=== PATIENT | female | born 2000 | race Asian ===

== ENCOUNTER 2022-05-03 23:59 | Inpatient (IN) ==
[2022-05-04] MEDS ORDERED: LORazepam 0.5 MG TAB PO STA (00:49)
[2022-05-04 01:14] LABS: Eosinophils # (auto) 0.01 K/uL (0-0.50); Eosinophils % (auto) 0.5 %; Hematocrit (blood only) 37.8 % (34.1-44.9); Hemoglobin 12.9 g/dl (12.0-16.0); Immature Granulocytes # (auto) 0.01 K/uL (0.00-0.02); Immature Granulocytes % (auto) 0.5 %; Lymphocytes # (auto) 0.58 K/uL (1.2-3.4); Lymphocytes % (auto) 27.4 %; Mean Corpuscular Hemoglobin 26.2 pg (25.0-34.0); Mean Corpuscular Hgb Conc 34.1 g/dL (32.0-36.0); Mean Corpuscular Volume 76.7 fL (80.0-100.0); Mean Platelet Volume 9.7 fL (9.4-12.3); Monocytes # (auto) 0.23 K/uL (0.24-0.82); Monocytes % (auto) 10.8 %; Neutrophils # (auto) 1.29 K/uL (1.4-6.5); Neutrophils % (auto) 60.8 %; Platelet Count 183 K/uL (130-400); RDW Coefficient of Variation 14.6 % (11.5-14.5); RDW Standard Deviation 39.3 fL (36.4-46.3); Red Blood Count 4.93 M/uL (3.93-5.22); White Blood Count 2.12 K/ul (4.8-10.8)
[2022-05-04 01:20] LABS: Appearance Urine Cloudy (Clear); Bacteria Urine Automated Negative (Negative); Bilirubin Urine Negative (Negative); Blood Urine Negative (Negative); Cast Urine Automated 0 /lpf (0-5); Color Urine Yellow; Epithelial Cell Urine Auto >30 /lpf (0-5); Glucose Urine UA Negative (Negative); Ketones Urine Trace (Negative); Leukocyte Esterase Urine Negative (Negative); Nitrite Urine Negative (Negative); Protein Urine Negative (Negative); RBC Urine Automated 0-4 /hpf (0-4); Specific Gravity Urine 1.013 (1.000-1.030); Urobilinogen Urine Negative (Negative)
[2022-05-04 01:36] LABS: Pregnancy Test, Serum Negative (Negative)
[2022-05-04 01:40] LABS: Acetaminophen < 3 ug/ml (10-30); Salicylate < 3.0 mg/dl (3.0-30)
[2022-05-04 01:41] LABS: Albumin Globulin Ratio 1.3 (0.9-2); Albumin Level 4.4 gm/dl (3.4-5.0); BUN Creatinine Ratio 14.9 (10-20); Bilirubin,Total 0.5 mg/dl (0.2-1.0); Calcium 9.5 mg/dl (8.5-10.1); Creatinine Clr Calc Pharmacy 96.3 ml/min; Est GFR (African American) 135.2 ml/min; Est GFR (Non-African American) 116.6 ml/min; Globulin 3.3 gm/dl (2.5-4.0); Potassium 3.6 mmol/L (3.5-5.1); Total Protein 7.7 gm/dl (6.0-8.3)
[2022-05-04 02:16] LABS: Amphetamines+Metham, Urine Neg (Neg); Barbiturates, Urine Neg (Neg); Benzodiazepine, Urine Neg (Neg); Cocaine, Urine Neg (Neg); MDMA (Ecstacy), Urine Neg (Neg); Methadone, Urine Neg (Neg); Opiate, Urine Neg (Neg); Phencyclidine, Urine Neg (Neg)
--- NOTE | 2022-05-04 02:24 | Emergency Department Note ---
History of Present Illness General Chief complaint: Anxiety Stated complaint: PANICK ATTACK Time Seen by Provider: 05/04/22 00:33 History of Present Illness Maximum Pain Intensity: 8 This is a 21-year-old female presenting to the emergency department for evaluation of mental health. The patient has a longstanding history of anxiety and depression. The patient previously was on medication for bipolar disorder which she discontinued taking a few months ago. She was seen in this department yesterday for medication reaction to doxycycline, as it was making her very nauseated. Evidently she was on this medication for bacterial vaginosis, however it appears the patient has had greater than 10 male sexual partners in the past few months. The patient states that her boyfriend cheated on her, and this was her way of getting back at him. The patient tonight went to a window in an apartment building, open the window, and states that she was going to jump out the window to commit suicide. She did have friends in the apartment, who were able to return her back to the room and ultimately bring her to the ER for evaluation. The patient has increased anxiety with school and this does cause her significant chest pain and nausea. She denies substance abuse or alcohol use. Home Medications Medication Instructions Recorded Confirmed Type doxycycline monohydrate 100 mg 100 mg PO BID 05/02/22 05/04/22 History capsule metronidazole 500 mg tablet 500 mg PO DAILY 05/02/22 05/04/22 History norethindrone 1 mg-ethinyl 1 tab PO DAILY 05/02/22 05/04/22 History estradiol 20 mcg (24)-iron 75 mg (4) tablet (Sol 24 Fe) quetiapine 100 mg tablet 200 mg PO HS 05/02/22 05/04/22 History trazodone 50 mg tablet 50 mg PO HS 05/02/22 05/04/22 History venlafaxine 225 mg tablet,extended 225 mg PO QAM 05/02/22 05/04/22 History release 24 hr Allergies Allergy/AdvReac Type Severity Reaction Status Date / Time No Known Allergies Allergy Unverified 05/02/22 21:55 Past Med/Surg History Medical History Anxiety and depression Bacterial vaginosis Bipolar affective disorder Surgical History No significant past surgical history Social History Smoking Status: Light tobacco smoker Tobacco Type: E-cigarettes / Vaping Hx Alcohol Use: No Hx Substance Use: No Preferred Language: Peruvian Communication Ability: Effective Rental Clerk Tool And Equipment Required: No Beliefs That Will Affect Care: None Feels Safe at Home: Yes Assistive Devices: Contacts Review of Systems A total of 10 systems reviewed and were otherwise negative Physical Exam Vital Signs Vital Signs - 24 hr 05/04/22 00:06 05/03/22 23:59 05/03/22 23:59 Temperature 37.0 C Temperature Source Temporal Artery Scan Pulse Rate 111 H Pulse Rate [Finger] 94 H Pulse Rhythm [Finger] Respiratory Rate 26 H 26 H Respiratory Effort / Characteristics Spontaneous Respiratory Depth Respiratory Pattern Rapid/Shallow Blood Pressure 112/81 Blood Pressure [Right Arm] 136/81 Blood Pressure Mean 91 Blood Pressure Mean [Right Arm] 99 Pulse Oximetry 97 100 100 Oxygen Delivery Method Room Air Room Air Room Air Sepsis New/Unexplained Change in Mental Status N/A Sepsis Action Taken by Nursing No Action Required 05/04/22 02:00 Temperature Temperature Source Pulse Rate Pulse Rate [Finger] 99 H Pulse Rhythm [Finger] Regular Respiratory Rate 20 Respiratory Effort / Characteristics Non-Labored Respiratory Depth Normal Respiratory Pattern Regular Blood Pressure Blood Pressure [Right Arm] 124/86 Blood Pressure Mean Blood Pressure Mean [Right Arm] 98 Pulse Oximetry 100 Oxygen Delivery Method Room Air Sepsis New/Unexplained Change in Mental Status Sepsis Action Taken by Nursing VITALS: Vitals are noted on the nurse's note and reviewed by myself. Vital signs stable. GENERAL: female who appears quite emotional. She is crying on exam but overall cooperative. HEAD: Normocephalic atraumatic. EARS: External ear normal. External auditory canals clear, tympanic membranes pearly bartlett without erythema or effusion bilaterally. EYES: Pupils equal round and reactive to light and accommodation. Conjunctivae without injection, sclerae without icterus. Extraocular movements intact. NOSE: Patent, turbinates without inflammation or discharge. MOUTH: Mucous membranes moist. Tonsils are not enlarged. Pharynx without erythema, blood, or exudate. Uvula midline. Airway patent. NECK: Supple without nuchal rigidity. No lymphadenopathy. No thyromegaly. Cervical spine is nontender. HEART: Regular rate and rhythm without murmurs gallops or rubs. LUNGS: Clear to auscultation bilaterally without wheezes, rales or rhonchi. No retractions or accessory muscle use. ABDOMEN: Positive normal bowel sounds x 4. Soft, nontender, without masses or organomegaly. No guarding or rebound tenderness. MUSCULOSKELETAL: No muscle atrophy, erythema, or edema noted. Full range of m otion in all extremities. No tenderness to palpation. Normal gait. Strength 5/5 throughout. NEURO: Patient was alert and oriented to person place and time. CN II through XII grossly intact. No focal neurological deficits. Deep tendon reflexes 2+ throughout. GCS 15. SKIN: The skin was without rashes, erythema, edema, or bruising. Capillary refill less than 2 seconds. Course Administered Medications Acetaminophen (Acetaminophen 325 Mg Tab) 650 mg PO Q4H PRN PRN Reason: Headache or Minor Fever Stop: 06/03/22 03:04 Last Admin: 05/04/22 04:15 Dose: 650 mg Documented By: AGATHA Hydroxyzine HCl (Hydroxyzine Hcl 25 Mg Tab) 25 mg PO Q4H PRN PRN Reason: Anxiety Stop: 06/03/22 03:04 Last Admin: 05/04/22 04:16 Dose: 25 mg Documented By: AGATHA Discontinued Medications Lorazepam (Lorazepam 0.5 Mg Tab) 0.5 mg PO NOW STA Stop: 05/04/22 00:50 Last Admin: 05/04/22 01:16 Dose: 0.5 mg Documented By: DEDE Medical Decision Making Differential Diagnosis Differential diagnosis: Etiologies such as psychiatric disorder, infection, hypoglycemia, electrolyte abnormalities, cardiac sources, intracerebral event, toxicological process, neurologic disorder, as well as others were entertained. Laboratory Data Result diagrams: 05/04/22 00:43 05/04/22 00:43 Lab Results 05/04/22 05/04/22 05/04/22 Range/Units 00:40 00:40 00:43 WBC 2.12 L (4.8-10.8) K/ul RBC 4.93 (3.93-5.22) M/uL Hgb 12.9 (12.0-16.0) g/dl Hct 37.8 (34.1-44.9) % MCV 76.7 L (80.0-100.0) fL MCH 26.2 (25.0-34.0) pg MCHC 34.1 (32.0-36.0) g/dL RDW Std Deviation 39.3 (36.4-46.3) fL RDW Coeff of Lizeth 14.6 H (11.5-14.5) % Plt Count 183 (130-400) K/uL MPV 9.7 (9.4-12.3) fL Immature Gran % (Auto) 0.5 % Neut % (Auto) 60.8 % Lymph % (Auto) 27.4 % [place] % (Auto) 10.8 % Eos % (Auto) 0.5 % Baso % (Auto) 0.0 % Neut # (Auto) 1.29 L (1.4-6.5) K/uL Lymph # (Auto) 0.58 L (1.2-3.4) K/uL [place] # (Auto) 0.23 L (0.24-0.82) K/uL Eos # (Auto) 0.01 (0-0.50) K/uL Baso # (Auto) 0.00 (0-0.2) K/uL Immature Gran # (Auto) 0.01 (0.00-0.02) K/uL Sodium (136-145) mmol/L Potassium (3.5-5.1) mmol/L Chloride (98-107) mmol/L Carbon Dioxide (21-32) mmol/L Anion Gap (3-11) BUN (6-23) mg/dl Creatinine (0.6-1.2) mg/dl Est Cr Clr Drug Dosing ml/min Est GFR ( Amer) ml/min Est GFR (Non-Af Amer) ml/min BUN/Creatinine Ratio (10-20) Glucose (70-99(Fasting)) mg/dl Calcium (8.5-10.1) mg/dl Total Bilirubin (0.2-1.0) mg/dl AST (13-39) U/L ALT (7-52) U/L Alkaline Phosphatase (34-104) U/L Total Protein (6.0-8.3) gm/dl Albumin (3.4-5.0) gm/dl Globulin (2.5-4.0) gm/dl Albumin/Globulin Ratio (0.9-2) TSH (0.300-4.500) uIu/ml HCG, Qual (Negative) Urine Color Yellow Urine Appearance Cloudy A (Clear) Urine pH 8.0 H (4.5-7.5) Ur Specific [place] 1.013 (1.000-1.030) Urine Protein Negative (Negative) Urine Glucose (UA) Negative (Negative) Urine Ketones Trace H (Negative) Urine Blood Negative (Negative) Urine Nitrite Negative (Negative) Urine Bilirubin Negative (Negative) Urine Urobilinogen Negative (Negative) Ur Leukocyte Esterase Negative (Negative) Urine WBC (Auto) 1-5 (0-5) /hpf Urine RBC (Auto) 0-4 (0-4) /hpf U Hyaline Cast (Auto) 0 (0-5) /lpf U Epithel Cells (Auto) >30 H (0-5) /lpf Urine Bacteria (Auto) Negative (Negative) Urine Yeast Not Reportable Salicylates (3.0-30) mg/dl Urine Opiates Screen Neg (Neg) Ur Methadone, Qual Neg (Neg) Acetaminophen (10-30) ug/ml Urine Barbiturates Neg (Neg) Ur Phencyclidine (PCP) Neg (Neg) U Amphetamin/Meth Scrn Neg (Neg) MDMA (Ecstasy) Screen Neg (Neg) U Benzodiazepines Scrn Neg (Neg) Ur Cocaine Metabolite Neg (Neg) U Marijuana (THC) Screen Neg (Neg) Ethyl Alcohol mg/dL (<10.0) mg/dl SARS-CoV-2, RNA, NAAT (NEGATIVE) 05/04/22 05/04/22 05/04/22 Range/Units 00:43 00:43 00:43 WBC (4.8-10.8) K/ul RBC (3.93-5.22) M/uL Hgb (12.0-16.0) g/dl Hct (34.1-44.9) % MCV (80.0-100.0) fL MCH (25.0-34.0) pg MCHC (32.0-36.0) g/dL RDW Std Deviation (36.4-46.3) fL RDW Coeff of Lizeth (11.5-14.5) % Plt Count (130-400) K/uL MPV (9.4-12.3) fL Immature Gran % (Auto) % Neut % (Auto) % Lymph % (Auto) % [place] % (Auto) % Eos % (Auto) % Baso % (Auto) % Neut # (Auto) (1.4-6.5) K/uL Lymph # (Auto) (1.2-3.4) K/uL [place] # (Auto) (0.24-0.82) K/uL Eos # (Auto) (0-0.50) K/uL Baso # (Auto) (0-0.2) K/uL Immature Gran # (Auto) (0.00-0.02) K/uL Sodium 132 L (136-145) mmol/L Potassium 3.6 (3.5-5.1) mmol/L Chloride 102 (98-107) mmol/L Carbon Dioxide 21 (21-32) mmol/L Anion Gap 9 (3-11) BUN 11 (6-23) mg/dl Creatinine 0.74 (0.6-1.2) mg/dl Est Cr Clr Drug Dosing 96.3 ml/min Est GFR ( Amer) 135.2 ml/min Est GFR (Non-Af Amer) 116.6 ml/min BUN/Creatinine Ratio 14.9 (10-20) Glucose 96 (70-99(Fasting)) mg/dl Calcium 9.5 (8.5-10.1) mg/dl Total Bilirubin 0.5 (0.2-1.0) mg/dl AST 68 H (13-39) U/L ALT 23 (7-52) U/L Alkaline Phosphatase 55 (34-104) U/L Total Protein 7.7 (6.0-8.3) gm/dl Albumin 4.4 (3.4-5.0) gm/dl Globulin 3.3 (2.5-4.0) gm/dl Albumin/Globulin Ratio 1.3 (0.9-2) TSH 0.832 (0.300-4.500) uIu/ml HCG, Qual (Negative) Urine Color Urine Appearance (Clear) Urine pH (4.5-7.5) Ur Specific [place] (1.000-1.030) Urine Protein (Negative) Urine Glucose (UA) (Negative) Urine Ketones (Negative) Urine Blood (Negative) Urine Nitrite (Negative) Urine Bilirubin (Negative) Urine Urobilinogen (Negative) Ur Leukocyte Esterase (Negative) Urine WBC (Auto) (0-5) /hpf Urine RBC (Auto) (0-4) /hpf U Hyaline Cast (Auto) (0-5) /lpf U Epithel Cells (Auto) (0-5) /lpf Urine Bacteria (Auto) (Negative) Urine Yeast Salicylates < 3.0 L (3.0-30) mg/dl Urine Opiates Screen (Neg) Ur Methadone, Qual (Neg) Acetaminophen < 3 L (10-30) ug/ml Urine Barbiturates (Neg) Ur Phencyclidine (PCP) (Neg) U Amphetamin/Meth Scrn (Neg) MDMA (Ecstasy) Screen (Neg) U Benzodiazepines Scrn (Neg) Ur Cocaine Metabolite (Neg) U Marijuana (THC) Screen (Neg) Ethyl Alcohol mg/dL (<10.0) mg/dl SARS-CoV-2, RNA, NAAT (NEGATIVE) 05/04/22 05/04/22 05/04/22 Range/Units 00:43 00:43 01:17 WBC (4.8-10.8) K/ul RBC (3.93-5.22) M/uL Hgb (12.0-16.0) g/dl Hct (34.1-44.9) % MCV (80.0-100.0) fL MCH (25.0-34.0) pg MCHC (32.0-36.0) g/dL RDW Std Deviation (36.4-46.3) fL RDW Coeff of Lizeth (11.5-14.5) % Plt Count (130-400) K/uL MPV (9.4-12.3) fL Immature Gran % (Auto) % Neut % (Auto) % Lymph % (Auto) % [place] % (Auto) % Eos % (Auto) % Baso % (Auto) % Neut # (Auto) (1.4-6.5) K/uL Lymph # (Auto) (1.2-3.4) K/uL [place] # (Auto) (0.24-0.82) K/uL Eos # (Auto) (0-0.50) K/uL Baso # (Auto) (0-0.2) K/uL Immature Gran # (Auto) (0.00-0.02) K/uL Sodium (136-145) mmol/L Potassium (3.5-5.1) mmol/L Chloride (98-107) mmol/L Carbon Dioxide (21-32) mmol/L Anion Gap (3-11) BUN (6-23) mg/dl Creatinine (0.6-1.2) mg/dl Est Cr Clr Drug Dosing ml/min Est GFR ( Amer) ml/min Est GFR (Non-Af Amer) ml/min BUN/Creatinine Ratio (10-20) Glucose (70-99(Fasting)) mg/dl Calcium (8.5-10.1) mg/dl Total Bilirubin (0.2-1.0) mg/dl AST (13-39) U/L ALT (7-52) U/L Alkaline Phosphatase (34-104) U/L Total Protein (6.0-8.3) gm/dl Albumin (3.4-5.0) gm/dl Globulin (2.5-4.0) gm/dl Albumin/Globulin Ratio (0.9-2) TSH (0.300-4.500) uIu/ml HCG, Qual Negative (Negative) Urine Color Urine Appearance (Clear) Urine pH (4.5-7.5) Ur Specific [place] (1.000-1.030) Urine Protein (Negative) Urine Glucose (UA) (Negative) Urine Ketones (Negative) Urine Blood (Negative) Urine Nitrite (Negative) Urine Bilirubin (Negative) Urine Urobilinogen (Negative) Ur Leukocyte Esterase (Negative) Urine WBC (Auto) (0-5) /hpf Urine RBC (Auto) (0-4) /hpf U Hyaline Cast (Auto) (0-5) /lpf U Epithel Cells (Auto) (0-5) /lpf Urine Bacteria (Auto) (Negative) Urine Yeast Salicylates (3.0-30) mg/dl Urine Opiates Screen (Neg) Ur Methadone, Qual (Neg) Acetaminophen (10-30) ug/ml Urine Barbiturates (Neg) Ur Phencyclidine (PCP) (Neg) U Amphetamin/Meth Scrn (Neg) MDMA (Ecstasy) Screen (Neg) U Benzodiazepines Scrn (Neg) Ur Cocaine Metabolite (Neg) U Marijuana (THC) Screen (Neg) Ethyl Alcohol mg/dL < 10.0 (<10.0) mg/dl SARS-CoV-2, RNA, NAAT NEGATIVE (NEGATIVE) MDM Narrative Physical exam and history were performed. Nursing notes, EMR, and Medication List were personally reviewed. Patient appears to have increased anxiety and depression today. She made overtures to jump out the window of an apartment building tonight, but was stopped by her friends. The patient is very emotional on arrival. Evidently she does have high risk sexual behavior recently as well after having difficulties with her boyfriend. Blood work was obtained and sent to the lab. Urine was collected. The patient is cooperative and currently voluntary. I did fill out a 302, and this is on the chart. I did give her a dose of 0.5 mg oral Ativan for comfort. She was placed on suicide precautions with a one-on-one. The case was discussed with my attending. The patient's blood work is as above and was reviewed. She does not have a significantly elevated white blood cell count, gross anemia, bandemia, or s ignificant electrolyte imbalance. Transaminases are not diagnostic. She is not . Urine is without distinct evidence of infection. Drug abuse screen is negative. Tylenol and salicylates are negative. Alcohol and COVID are negative. Remaining labs are nondiagnostic. The patient remained in stable condition here in the ER. She is now medically clear at 02:22. I did reach out to case management who will help facilitate further mental health evaluation. 201 was completed. Please see mental health teams dictation for further patient course, plan, disposition. The chart was completed utilizing [employer] Speech Voice Recognition Software. Grammatical errors, random word insertions, pronoun errors, and incomplete sentences are an occasional consequence of this system due to software limitations, ambient noise, and hardware issues. Any formal questions or concerns about the content, text, or information contained within the body of this dictation should be directly addressed to the provider for clarification. . Impression & Plan Anxiety and depression, Suicide attempt, High risk sexual behavior Discharge Plan Visit Data Chief Complaint: Anxiety Stated Complaint: PANICK ATTACK ED Provider: Jose R Angeles ED Midlevel Provider: Greg Coyle Discharge Problem: Anxiety and depression, Suicide attempt, High risk sexual behavior Patient Disposition: Admitted As Inpatient Discharge Instructions Interventions: ED Discharge Assessment Last Done: 05/04/22 03:57
[2022-05-04] MEDS ORDERED: SODIUM CHLORIDE 0.65% NA SOLN 45 ML (OCEAN) PRN (03:05)
[2022-05-04] MEDS ORDERED: MAGNESIUM HYDROXIDE SUSP 30 ML UDC PO PRN (03:05)
[2022-05-04] MEDS ORDERED: hydrOXYzine HCl 25 MG TAB PO PRN ×2 (03:05)
[2022-05-04] MEDS ORDERED: ALUMINUM/MAGNESIUM SUSP 30 ML UDC PO PRN (03:05)
[2022-05-04] MEDS: ACETAMINOPHEN 325 MG TAB PO PRN ×3 (04:15→23:07)
[2022-05-04] MEDS ORDERED: traZODone HCL 50 MG TAB PO PRN (12:41)
--- NOTE | 2022-05-04 13:41 | History & Physical ---
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 Bipolar by hx, has side effects to mood stabilizer and discontinued antidepressant on own about 2 months ago. Unclear if having true manic episodes vs. acting out sexually, will continue to explore hypomania as suspect may minimize at this time. (1) Suicide attempt: (2) Bipolar II disorder major depressive with atypical features: Plan The patient was admitted to the [facility] ([facility] health unit) on q15 min checks (behavioral with suicide precautions) for safety. The patient will participate in group, recreational, and milieu therapies and will be offered additional individual and family sessions as clinically appropriate. Risks/benefits/alternatives reviewed re: her current medications. will order fasting labs in am with plan to taper Seroquel in favor of a trial of agent like Abilify as may have more antidepressant effect and be less sedating. Inventory Assets Strengths: senior, culturally accepting of some meds Needs: local therapist and prescriber Suicide Risk Level Suicide Risk Level: High-Moderate (q15 min suicide checks) Risk Factors Assessment : No Do You Have Access To A Gun?: Yes (a small rifle in a locked gun case in living room of apartment) Mental Health Diagnoses: Yes Substance Use Disorders: No Previous Attempt: Yes Previous Psychiatric Hospitalization: No Protective Factors Assessment Employed: No Psychiatric History Identifying Data HALLE RICHARDSON is a 21-year-old F from [place] who currently attends [facility], has a history of SIB, and was admitted on 05/04/22 03:05 on a 201 voluntary commitment for SI with near attempt. Chief Complaint "I just haven't been taking my medication for while, haven't been feeling great and thought about jumping from my window." History of Present Illness Today Halle reports that she has been dealing with depression since "maybe elementary or emerita high" and has 1 prior suicide attempt by cutting in early teens but did not get any treatment at the time. She has been seeing a psychiatrist in [place] for a few years, mainly varying doses of her current meds and [place] but hasn't taken Effexor XR for 2-3 months as "don't like getting headaches, or taking meds in general." It should likes she has been only taking half of her prescribed Seroquel and 50 mg of trazodone and sometimes skips as "I have to sleep 12 hrs and then can't get up." Yesterday she had urge to end her life by climbing out her apartment window and her friends had to "talk me away" and brought her to ED for assessment. She has some difficulty relating her current stressors other than return to classes as much of this summer she spent in [place] with her boyfriend. She denies they are currently broken up but it should be seen in ED recently and completed most of course of Flagyl and doxy for BV and to cover for STIs given hx of multiple sexual partners. She admits to having sex with male friends when she really just wants to talk but didn't endorse hypersexuality and seemed to have difficulty knowing what was meant by manic symptom. She has brief periods where she feels like "talking alot" and then goes to her room to isolate. When depressed she feels like she has a harder time going to class and last week experienced panic/anxiety due to number of people in the business building. She has had similar symptoms while driving. She was having alot of N and D last week due to side effects from the antibiotics. She has been sleeping too much, gained 20 lbs this summer despite being active with golf. Past Psychiatric History Current Psychiatric Diagnosis: Bipolar, [facility]AYLEE Outpatient Services: only in [place] Previous Psych Admissions: none Do You Have Access To A Gun?: Yes (a small rifle in a locked gun case in living room of apartment) History of Previous Suicide Attempt: Yes (cut self as a minor) Allergies Allergy/AdvReac Type Severity Reaction Status Date / Time No Known Allergies Allergy Unverified 05/02/22 21:55 Home Medications Medication Instructions Recorded Confirmed Type doxycycline monohydrate 100 mg 100 mg PO BID 05/02/22 05/04/22 History capsule metronidazole 500 mg tablet 500 mg PO DAILY 05/02/22 05/04/22 History norethindrone 1 mg-ethinyl 1 tab PO DAILY 05/02/22 05/04/22 History estradiol 20 mcg (24)-iron 75 mg (4) tablet (Sol 24 Fe) quetiapine 100 mg tablet 200 mg PO HS 05/02/22 05/04/22 History trazodone 50 mg tablet 50 mg PO HS 05/02/22 05/04/22 History venlafaxine 225 mg tablet,extended 225 mg PO QAM 05/02/22 05/04/22 History release 24 hr Family History Family History of: None Alcohol History Hx of Alcohol Use Over the Past 12 Months: No AUDIT Total Score: 0 Smoking Use Have You Smoked or Used Tobacco Products in the Last 30 Days: Yes tobacco type: e-cigarettes Smoking Status: Light tobacco smoker Smoking packs per day: 1 Substance History Hx of Prescription Med Misuse Over the Past 12 Months: No Hx of Over the Counter Med Misuse Over the Past 12 Months: No Hx of Inhalent Misuse Over the Past 12 Months: Yes (laughing gas three to four months ago) Hx of Organic Substance Use Over the Past 12 Months: Yes (marijuana three to four months ago) Hx of Illegal Substances/Street Drug Use Over Past 12 Months: No Problems as a Result of Past Substance Use: None Identified Personal History Living Arrangements: Apartment (3rd story) Born In: [place] Childhood: one older sister Highest Grade Completed: Some College (sr. 4.0 in [employer]) Employment Status: Student Marital Status: Single Number Of Children: 0 Beliefs That Will Affect Care: None Current Legal Problems: No Hx Legal Problems: No Hx Traumatic Life Events: No Patient History Medical History Anxiety and depression Bacterial vaginosis Bipolar affective disorder Surgical History No significant past surgical history Social History Smoking Status: Light tobacco smoker Tobacco Type: E-cigarettes / Vaping Hx Alcohol Use: No Hx Substance Use: No Preferred Language: Bulgarian Communication Ability: Effective Steward/[employer] Car Required: No Beliefs That Will Affect Care: None Feels Safe at Home: Yes Assistive Devices: Contacts Review of Systems Review of Systems: All systems reviewed & are unremarkable except as noted in HPI & below Physical Exam Psychiatric: Orientation: alert and oriented x 3 Apperance: appropriately dressed and appropriately groomed Eye Contact: + fair eye contact Motor Behavior: no abnormal motor movements Speech: + abnormal rate/rhythm/volume of speech Affect: + depressed affect Mood: + depressed mood Thought Process: goal directed thought process Thought Content: reality based without delusions Suicidal Thoughts: denies suicidal thoughts Homicidal Thoughts: denies homicidal thoughts Hallucinations: no auditory hallucinations and no visual hallucinations Cognition: attention grossly intact and language grossly intact Estimated Intelligence: consistent with education level Insight: + limited insight Judgement: + limited judgement Vital Signs (Past 24 Hours): Last Vital Signs Temp 37.5 C 05/04/22 04:44 Pulse 104 H 05/04/22 04:44 Resp 20 05/04/22 04:44 BP 121/87 05/04/22 04:44 Pulse Ox 99 05/04/22 04:44 O2 Del Method 05/04/22 04:44 Exam Statement: A physical exam was performed in the ED by Dr. Coyle for the purposes of medical clearance. I accept that physical as correct and adequate for the purposes of the inpatient physical exam. Results & Data ([facility]) Laboratory Results Laboratory Results - last 24 hr 05/04/22 05/04/22 05/04/22 00:40 00:40 00:43 WBC 2.12 L RBC 4.93 Hgb 12.9 Hct 37.8 MCV 76.7 L MCH 26.2 MCHC 34.1 RDW Std Deviation 39.3 RDW Coeff of Lizeth 14.6 H Plt Count 183 MPV 9.7 Immature Gran % (Auto) 0.5 Neut % (Auto) 60.8 Lymph % (Auto) 27.4 [place] % (Auto) 10.8 Eos % (Auto) 0.5 Baso % (Auto) 0.0 Neut # (Auto) 1.29 L Lymph # (Auto) 0.58 L [place] # (Auto) 0.23 L Eos # (Auto) 0.01 Baso # (Auto) 0.00 Immature Gran # (Auto) 0.01 Sodium Potassium Chloride Carbon Dioxide Anion Gap BUN Creatinine Est Cr Clr Drug Dosing Est GFR ( Amer) Est GFR (Non-Af Amer) BUN/Creatinine Ratio Glucose Calcium Total Bilirubin AST ALT Alkaline Phosphatase Total Protein Albumin Globulin Albumin/Globulin Ratio TSH HCG, Qual Urine Color Yellow Urine Appearance Cloudy A Urine pH 8.0 H Ur Specific [place] 1.013 Urine Protein Negative Urine Glucose (UA) Negative Urine Ketones Trace H Urine Blood Negative Urine Nitrite Negative Urine Bilirubin Negative Urine Urobilinogen Negative Ur Leukocyte Esterase Negative Urine WBC (Auto) 1-5 Urine RBC (Auto) 0-4 U Hyaline Cast (Auto) 0 U Epithel Cells (Auto) >30 H Urine Bacteria (Auto) Negative Urine Yeast Not Reportable Salicylates Urine Opiates Screen Neg Ur Methadone, Qual Neg Acetaminophen Urine Barbiturates Neg Ur Phencyclidine (PCP) Neg U Amphetamin/Meth Scrn Neg MDMA (Ecstasy) Screen Neg U Benzodiazepines Scrn Neg Ur Cocaine Metabolite Neg U Marijuana (THC) Screen Neg Ethyl Alcohol mg/dL SARS-CoV-2, RNA, NAAT 05/04/22 05/04/22 05/04/22 00:43 00:43 00:43 WBC RBC Hgb Hct MCV MCH MCHC RDW Std Deviation RDW Coeff of Lizeth Plt Count MPV Immature Gran % (Auto) Neut % (Auto) Lymph % (Auto) [place] % (Auto) Eos % (Auto) Baso % (Auto) Neut # (Auto) Lymph # (Auto) [place] # (Auto) Eos # (Auto) Baso # (Auto) Immature Gran # (Auto) Sodium 132 L Potassium 3.6 Chloride 102 Carbon Dioxide 21 Anion Gap 9 BUN 11 Creatinine 0.74 Est Cr Clr Drug Dosing 96.3 Est GFR ( Amer) 135.2 Est GFR (Non-Af Amer) 116.6 BUN/Creatinine Ratio 14.9 Glucose 96 Calcium 9.5 Total Bilirubin 0.5 AST 68 H ALT 23 Alkaline Phosphatase 55 Total Protein 7.7 Albumin 4.4 Globulin 3.3 Albumin/Globulin Ratio 1.3 TSH 0.832 HCG, Qual Urine Color Urine Appearance Urine pH Ur Specific [place] Urine Protein Urine Glucose (UA) Urine Ketones Urine Blood Urine Nitrite Urine Bilirubin Urine Urobilinogen Ur Leukocyte Esterase Urine WBC (Auto) Urine RBC (Auto) U Hyaline Cast (Auto) U Epithel Cells (Auto) Urine Bacteria (Auto) Urine Yeast Salicylates < 3.0 L Urine Opiates Screen Ur Methadone, Qual Acetaminophen < 3 L Urine Barbiturates Ur Phencyclidine (PCP) U Amphetamin/Meth Scrn MDMA (Ecstasy) Screen U Benzodiazepines Scrn Ur Cocaine Metabolite U Marijuana (THC) Screen Ethyl Alcohol mg/dL SARS-CoV-2, RNA, NAAT 05/04/22 05/04/22 05/04/22 00:43 00:43 01:17 WBC RBC Hgb Hct MCV MCH MCHC RDW Std Deviation RDW Coeff of Lizeth Plt Count MPV Immature Gran % (Auto) Neut % (Auto) Lymph % (Auto) [place] % (Auto) Eos % (Auto) Baso % (Auto) Neut # (Auto) Lymph # (Auto) [place] # (Auto) Eos # (Auto) Baso # (Auto) Immature Gran # (Auto) Sodium Potassium Chloride Carbon Dioxide Anion Gap BUN Creatinine Est Cr Clr Drug Dosing Est GFR ( Amer) Est GFR (Non-Af Amer) BUN/Creatinine Ratio Glucose Calcium Total Bilirubin AST ALT Alkaline Phosphatase Total Protein Albumin Globulin Albumin/Globulin Ratio TSH HCG, Qual Negative Urine Color Urine Appearance Urine pH Ur Specific [place] Urine Protein Urine Glucose (UA) Urine Ketones Urine Blood Urine Nitrite Urine Bilirubin Urine Urobilinogen Ur Leukocyte Esterase Urine WBC (Auto) Urine RBC (Auto) U Hyaline Cast (Auto) U Epithel Cells (Auto) Urine Bacteria (Auto) Urine Yeast Salicylates Urine Opiates Screen Ur Methadone, Qual Acetaminophen Urine Barbiturates Ur Phencyclidine (PCP) U Amphetamin/Meth Scrn MDMA (Ecstasy) Screen U Benzodiazepines Scrn Ur Cocaine Metabolite U Marijuana (THC) Screen Ethyl Alcohol mg/dL < 10.0 SARS-CoV-2, RNA, NAAT NEGATIVE Current Inpatient Medications Current Inpatient Medications: Current Inpatient Medications Acetaminophen (Acetaminophen 325 Mg Tab) 650 mg PO Q4H PRN PRN Reason: Headache or Minor Fever Stop: 06/03/22 03:04 Last Admin: 05/04/22 04:15 Dose: 650 mg Al Hydrox/Mg Hydrox/Simethicone (Aluminum/Magnesium Susp 30 Ml Udc) 30 ml PO Q4H PRN PRN Reason: GI Upset Stop: 06/03/22 03:04 Bismuth Subsalicylate (Bismuth Subsalicylate Liqd 236 Ml) 15 ml PO PRN PRN PRN Reason: Loose Stool Stop: 06/03/22 03:04 Hydroxyzine HCl (Hydroxyzine Hcl 25 Mg Tab) 25 mg PO Q4H PRN PRN Reason: Anxiety Stop: 06/03/22 03:04 Last Admin: 05/04/22 04:16 Dose: 25 mg Magnesium Hydroxide (Magnesium Hydroxide Susp 30 Ml Udc) 30 ml PO DAILY PRN PRN Reason: Constipation Stop: 06/03/22 03:04 Miscellaneous (Oral Contraceptive: Order Awaiting Action) 1 each N/A QS ZACH Stop: 06/03/22 15:59 Quetiapine Fumarate (Quetiapine Fumarate 100 Mg Tablet) 100 mg PO HS ZACH Stop: 06/03/22 21:59 Sodium Chloride (Sodium Chloride 0.65% Na Soln 45 Ml ([place])) 1 - 2 sprays NA PRN PRN PRN Reason: Nasal Dryness/Congestion Stop: 06/03/22 03:04 Trazodone HCl (Trazodone Hcl 50 Mg Tab) 50 mg PO HS PRN PRN Reason: Insomnia Stop: 06/03/22 21:59
--- NOTE | 2022-05-04 15:52 | Electrocardiogram Report ---
Test Reason : Blood Pressure : / mmHG Vent. Rate : 098 BPM Atrial Rate : 098 BPM P-R Int : 140 ms QRS Dur : 068 ms QT Int : 332 ms P-R-T Axes : 070 061 051 degrees QTc Int : 423 ms Normal sinus rhythm Normal ECG When compared with ECG of 02-MAY-2022 22:19, No significant change was found Confirmed by Calvin Juarez ([id number]) on 05/04/2022 3:52:18 PM Referred By: REFERRED SELF Confirmed By:Calvin Juarez
[2022-05-04] MEDS ORDERED: ORAL CONTRACEPTIVE: ORDER AWAITING ACTION SCH (16:00)
[2022-05-04] MEDS: BISMUTH SUBSALICYLATE LIQD 236 ML PO PRN ×2 (18:20→21:18)
[2022-05-04] MEDS ORDERED: QUEtiapine FUMARATE 25 MG TABLET PO SCH (22:00)
[2022-05-04] MEDS ORDERED: QUEtiapine FUMARATE 100 MG TABLET PO SCH (22:00)
[2022-05-04] MEDS: PATIENT'S OWN ORAL CONTRACEPTIVE PO SCH (23:03)
[2022-05-05] MEDS ORDERED: ONDANSETRON 4 MG OD TAB PO PRN (11:45)
[2022-05-05] MEDS ORDERED: ONDANSETRON 4 MG OD TAB PO STA (11:45)
[2022-05-05] MEDS: PANTOprazole 40 MG TAB PO SCH ×2 (13:35→22:37)
--- NOTE | 2022-05-05 14:34 | Psychiatric Progress Note ---
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 Bipolar by hx, has side effects to mood stabilizer and discontinued antidepressant on own about 2 months ago. Unclear if having true manic episodes vs. acting out sexually, will continue to explore hypomania as suspect may minimize at this time. [birth year]/05/33: ongoing depression and GI complaints (1) Suicide attempt: (2) Bipolar II disorder major depressive with atypical features: Plan 05/05/22: MNPR due to GI illness, also patient has mildly low ANC which could be JIM, can't exclude side effect of Seroquel which will taper to 25 mg tonight. Cannot exclude FAIRBANKS/dizzy as discontinuation syndrome from seroquel but more likely overall illness. fasting labs as previously discussed with repeat sodium, lipase, CBC. Consider medicine consult if persists. Will reswab for covid if febrile to 100.4 (no respiratory symptoms) 05/04/22: The patient was admitted to the [facility] ([facility] health unit) on q15 min checks (behavioral with suicide precautions) for safety. The patient will participate in group, recreational, and milieu therapies and will be offered additional individual and family sessions as clinically appropriate. Risks/benefits/alternatives reviewed re: her current medications. will order fasting labs in am with plan to taper Seroquel in favor of a trial of agent like Abilify as may have more antidepressant effect and be less sedating. Inventory Assets Strengths: senior, culturally accepting of some meds Needs: local therapist and prescriber Suicide Risk Level Suicide Risk Level: High-Moderate (q15 min suicide checks) Risk Factors Assessment : No Do You Have Access To A Gun?: Yes (a small rifle in a locked gun case in living room of apartment) Mental Health Diagnoses: Yes Substance Use Disorders: No Previous Attempt: Yes Previous Psychiatric Hospitalization: No Protective Factors Assessment Employed: No Interval History Identifying Information HALLE RICHARDSON is a 21-year-old F from [place] who currently attends [facility], has a history of SIB, and was admitted on 05/04/22 03:05 on a 201 voluntary commitment for SI with near attempt. Chief Complaint "not feeling well". Review of Systems Sleep Information Total Hours of Sleep: 6 Meal Information Percent Meal Consumed - Breakfast: 10 Percent Meal Consumed - Lunch: 75 Percent Meal Consumed - Dinner: 50 Nutrition Comment: pt. had a dew bites but c/o of nausea; fluids provided Subjective Subjective Patient was seen & assessed and interval progress reviewed with nursing and social work. States that woke up more overnight (Seroquel dose was lowered, didn't receive trazodone) so FAIRBANKS and some dizziness this am but mainly nauseated when eats, like when she was on antibiotics (still having some resolving D from that), vague LUQ discomfort. Unable to attend groups today. Worse when she eats. Physical Exam Psychiatric Orientation: alert and oriented x 3 Apperance: appropriately dressed and appropriately groomed Eye Contact: + fair eye contact Motor Behavior: no abnormal motor movements Speech: + abnormal rate/rhythm/volume of speech Affect: + depressed affect Mood: + depressed mood Thought Process: goal directed thought process Thought Content: reality based without delusions Suicidal Thoughts: denies suicidal thoughts Homicidal Thoughts: denies homicidal thoughts Hallucinations: no auditory hallucinations and no visual hallucinations Cognition: attention grossly intact and language grossly intact Estimated Intelligence: consistent with education level Insight: + limited insight Judgement: + limited judgement Vital Signs (Past 24 Hours) Last Vital Signs Temp 37.3 C 05/05/22 12:01 Pulse 112 H 05/05/22 12:01 Resp 18 05/05/22 12:01 BP 101/67 05/05/22 12:01 Pulse Ox 99 05/04/22 04:44 O2 Del Method 05/04/22 04:44 Results & Data ([facility]) Current Inpatient Medications Current Inpatient Medications: Current Inpatient Medications Acetaminophen (Acetaminophen 325 Mg Tab) 650 mg PO Q4H PRN PRN Reason: Headache or Minor Fever Stop: 06/03/22 03:04 Last Admin: 05/04/22 23:07 Dose: 650 mg Al Hydrox/Mg Hydrox/Simethicone (Aluminum/Magnesium Susp 30 Ml Udc) 30 ml PO Q4H PRN PRN Reason: GI Upset Stop: 06/03/22 03:04 Bismuth Subsalicylate (Bismuth Subsalicylate Liqd 236 Ml) 15 ml PO PRN PRN PRN Reason: Loose Stool Stop: 06/03/22 03:04 Last Admin: 05/04/22 21:18 Dose: 15 ml Hydroxyzine HCl (Hydroxyzine Hcl 25 Mg Tab) 25 mg PO Q4H PRN PRN Reason: Anxiety Stop: 06/03/22 03:04 Last Admin: 05/04/22 04:16 Dose: 25 mg Magnesium Hydroxide (Magnesium Hydroxide Susp 30 Ml Udc) 30 ml PO DAILY PRN PRN Reason: Constipation Stop: 06/03/22 03:04 Miscellaneous (Patient's Own Oral Contraceptive) 1 each PO HS ZACH Stop: 06/03/22 22:59 Last Admin: 05/04/22 23:03 Dose: 1 each Ondansetron HCl (Ondansetron 4 Mg Od Tab) 4 mg PO Q6H PRN PRN Reason: Nausea Stop: 06/04/22 11:44 Pantoprazole Sodium (Pantoprazole 40 Mg Tab) 40 mg PO BID ZACH Stop: 06/04/22 11:59 Last Admin: 05/05/22 13:35 Dose: 40 mg Quetiapine Fumarate (Quetiapine Fumarate 25 Mg Tablet) 25 mg PO HS ZACH Stop: 06/04/22 21:59 Sodium Chloride (Sodium Chloride 0.65% Na Soln 45 Ml ([place])) 1 - 2 sprays NA PRN PRN PRN Reason: Nasal Dryness/Congestion Stop: 06/03/22 03:04 Trazodone HCl (Trazodone Hcl 50 Mg Tab) 50 mg PO HS PRN PRN Reason: Insomnia Stop: 06/03/22 21:59 Trazodone HCl (Trazodone Hcl 50 Mg Tab) 50 mg PO HS ZACH Stop: 06/04/22 21:59 Post Discharge Appointments Primary Care Physician Name Of Family Doctor: NEW
[2022-05-05] MEDS: BISMUTH SUBSALICYLATE LIQD 236 ML PO PRN (19:59)
[2022-05-05] MEDS ORDERED: QUEtiapine FUMARATE 25 MG TABLET PO SCH (22:00)
[2022-05-05] MEDS: PATIENT'S OWN ORAL CONTRACEPTIVE PO SCH (22:34)
[2022-05-05] MEDS: traZODone HCL 50 MG TAB PO SCH (22:35)
--- NOTE | 2022-05-06 06:57 | Psychiatric Progress Note ---
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 Bipolar by hx, has side effects to mood stabilizer and discontinued antidepressant on own about 2 months ago. Unclear if having true manic episodes vs. acting out sexually, will continue to explore hypomania as suspect may minimize at this time. 05/06/22: physically improved, remains anxious and unable to function outside of hospital due to depression. (1) Suicide attempt: (2) Bipolar II disorder major depressive with atypical features: Plan 05/06/22: reviewed labs, d/c Seroquel, agreed to trial of Abilify instead, aware same risks/benefits/alternatives and need for longer term monitoring. 05/05/22: MNPR due to GI illness, also patient has mildly low ANC which could be JIM, can't exclude side effect of Seroquel which will taper to 25 mg tonight. Cannot exclude FAIRBANKS/dizzy as discontinuation syndrome from seroquel but more likely overall illness. fasting labs as previously discussed with repeat sodium, lipase, CBC. Consider medicine consult if persists. Will reswab for covid if febrile to 100.4 (no respiratory symptoms) 05/04/22: The patient was [facility] to [facility] ([facility]) on q15 min checks (behavioral with suicide precautions) for safety. The patient will participate in group, recreational, and milieu therapies and will be offered additional individual and family sessions as clinically appropriate. Risks/benefits/alternatives reviewed re: her current medications. will order fasting labs in am with plan to taper Seroquel in favor of a trial of agent like Abilify as may have more antidepressant effect and be less sedating. Inventory Assets Strengths: senior, culturally accepting of some meds Needs: local therapist and prescriber Suicide Risk Level Suicide Risk Level: High-Moderate (q15 min suicide checks) Risk Factors Assessment : No Do You Have Access To A Gun?: Yes (a small rifle in a locked gun case in living room of apartment) Mental Health Diagnoses: Yes Substance Use Disorders: No Previous Attempt: Yes Previous Psychiatric Hospitalization: No Protective Factors Assessment Employed: No Interval History Identifying Information HALLE RICHARDSON is a 21-year-old F from [place] who currently attends [employer], has a history of SIB, and was admitted on 05/04/22 03:05 on a 201 voluntary commitment for SI with near attempt. Chief Complaint "I'm still really overwhelmed." Review of Systems Sleep Information Total Hours of Sleep: 6.5 Meal Information Percent Meal Consumed - Breakfast: 10 Percent Meal Consumed - Lunch: 75 Percent Meal Consumed - Dinner: 50 Nutrition Comment: pt. had a dew bites but c/o of nausea; fluids provided Subjective Subjective Patient was seen & assessed and interval progress reviewed with treatment team. spent most of day in bed yesterday due to GI symptoms. is able to confirm hx of neutropenia since coming to [place] and follows monthly with [email or web address] States she is still very depressed and unable to function but physically is feeling better. Sleep remains more disrupted than previously. Physical Exam Psychiatric Orientation: alert and oriented x 3 Apperance: appropriately dressed and appropriately groomed Eye Contact: + fair eye contact Motor Behavior: no abnormal motor movements Speech: + abnormal rate/rhythm/volume of speech Affect: + depressed affect Mood: + depressed mood Thought Process: goal directed thought process Thought Content: reality based without delusions Suicidal Thoughts: denies suicidal thoughts Homicidal Thoughts: denies homicidal thoughts Hallucinations: no auditory hallucinations and no visual hallucinations Cognition: attention grossly intact and language grossly intact Estimated Intelligence: consistent with education level Insight: + limited insight Judgement: + limited judgement Vital Signs (Past 24 Hours) Last Vital Signs Temp 36.8 C 05/06/22 06:41 Pulse 91 H 05/06/22 06:42 Resp 16 05/06/22 06:41 BP 94/63 L 05/06/22 06:42 Pulse Ox 99 05/04/22 04:44 O2 Del Method 05/04/22 04:44 Results & Data ([facility]) Laboratory Results 05/06/22 05/06/22 Range/Units 08:10 08:10 WBC 2.30 L (4.8-10.8) K/ul RBC 4.87 (3.93-5.22) M/uL Hgb 12.8 (12.0-16.0) g/dl Hct 37.4 (34.1-44.9) % MCV 76.8 L (80.0-100.0) fL MCH 26.3 (25.0-34.0) pg MCHC 34.2 (32.0-36.0) g/dL RDW Std Deviation 41.2 (36.4-46.3) fL RDW Coeff of Lizeth 15.2 H (11.5-14.5) % Plt Count 143 (130-400) K/uL MPV 10.7 (9.4-12.3) fL Immature Gran % (Auto) 0.4 % Neut % (Auto) 49.2 % Lymph % (Auto) 40.9 % [place] % (Auto) 8.7 % Eos % (Auto) 0.4 % Baso % (Auto) 0.4 % Neut # (Auto) 1.13 L (1.4-6.5) K/uL Lymph # (Auto) 0.94 L (1.2-3.4) K/uL [place] # (Auto) 0.20 L (0.24-0.82) K/uL Eos # (Auto) 0.01 (0-0.50) K/uL Baso # (Auto) 0.01 (0-0.2) K/uL Immature Gran # (Auto) 0.01 (0.00-0.02) K/uL Sodium 134 L (136-145) mmol/L Fasting Glucose 91 (70-99) mg/dl Triglycerides 167 H (0-150) mg/dl Cholesterol 120 (0-200) mg/dl LDL Cholesterol, Calc 50 mg/dl VLDL Cholesterol, Calc 33 H (0-30) mg/dl HDL Cholesterol 37 mg/dl Cholesterol/HDL Ratio 3.2 (0-5) Lipase 37 (11-82) U/L Current Inpatient Medications Current Inpatient Medications: Current Inpatient Medications Acetaminophen (Acetaminophen 325 Mg Tab) 650 mg PO Q4H PRN PRN Reason: Headache or Minor Fever Stop: 06/03/22 03:04 Last Admin: 05/04/22 23:07 Dose: 650 mg Al Hydrox/Mg Hydrox/Simethicone (Aluminum/Magnesium Susp 30 Ml Udc) 30 ml PO Q4H PRN PRN Reason: GI Upset Stop: 06/03/22 03:04 Bismuth Subsalicylate (Bismuth Subsalicylate Liqd 236 Ml) 15 ml PO PRN PRN PRN Reason: Loose Stool Stop: 06/03/22 03:04 Last Admin: 05/05/22 19:59 Dose: 15 ml Hydroxyzine HCl (Hydroxyzine Hcl 25 Mg Tab) 25 mg PO Q4H PRN PRN Reason: Anxiety Stop: 06/03/22 03:04 Last Admin: 05/04/22 04:16 Dose: 25 mg Magnesium Hydroxide (Magnesium Hydroxide Susp 30 Ml Udc) 30 ml PO DAILY PRN PRN Reason: Constipation Stop: 06/03/22 03:04 Miscellaneous (Patient's Own Oral Contraceptive) 1 each PO HS ZACH Stop: 06/03/22 22:59 Last Admin: 05/05/22 22:34 Dose: 1 each Ondansetron HCl (Ondansetron 4 Mg Od Tab) 4 mg PO Q6H PRN PRN Reason: Nausea Stop: 06/04/22 11:44 Pantoprazole Sodium (Pantoprazole 40 Mg Tab) 40 mg PO BID ZACH Stop: 06/04/22 11:59 Last Admin: 05/05/22 22:37 Dose: 40 mg Quetiapine Fumarate (Quetiapine Fumarate 25 Mg Tablet) 25 mg PO HS ZACH Stop: 06/04/22 21:59 Last Admin: 05/05/22 22:35 Dose: 25 mg Sodium Chloride (Sodium Chloride 0.65% Na Soln 45 Ml ([place])) 1 - 2 sprays NA PRN PRN PRN Reason: Nasal Dryness/Congestion Stop: 06/03/22 03:04 Trazodone HCl (Trazodone Hcl 50 Mg Tab) 50 mg PO HS PRN PRN Reason: Insomnia Stop: 06/03/22 21:59 Trazodone HCl (Trazodone Hcl 50 Mg Tab) 50 mg PO HS ZACH Stop: 06/04/22 21:59 Last Admin: 05/05/22 22:35 Dose: 50 mg Post Discharge Appointments Primary Care Physician Name Of Family Doctor: Ese
[2022-05-06 09:05] LABS: Basophils # (auto) 0.01 K/uL (0-0.2); Basophils % (auto) 0.4 %; Eosinophils # (auto) 0.01 K/uL (0-0.50); Eosinophils % (auto) 0.4 %; Hematocrit (blood only) 37.4 % (34.1-44.9); Hemoglobin 12.8 g/dl (12.0-16.0); Immature Granulocytes # (auto) 0.01 K/uL (0.00-0.02); Immature Granulocytes % (auto) 0.4 %; Lymphocytes # (auto) 0.94 K/uL (1.2-3.4); Lymphocytes % (auto) 40.9 %; Mean Corpuscular Hemoglobin 26.3 pg (25.0-34.0); Mean Corpuscular Hgb Conc 34.2 g/dL (32.0-36.0); Mean Corpuscular Volume 76.8 fL (80.0-100.0); Mean Platelet Volume 10.7 fL (9.4-12.3); Monocytes % (auto) 8.7 %; Neutrophils # (auto) 1.13 K/uL (1.4-6.5); Neutrophils % (auto) 49.2 %; Platelet Count 143 K/uL (130-400); RDW Coefficient of Variation 15.2 % (11.5-14.5); RDW Standard Deviation 41.2 fL (36.4-46.3); Red Blood Count 4.87 M/uL (3.93-5.22)
[2022-05-06] MEDS: PANTOprazole 40 MG TAB PO SCH ×2 (09:05→22:01)
[2022-05-06 09:36] LABS: Chol HDL Ratio 3.2 (0-5)
[2022-05-06] MEDS ORDERED: traZODone HCL 100 MG TAB PO PRN (13:06)
[2022-05-06] MEDS: ARIPiprazole 5 MG TAB PO SCH (14:31)
[2022-05-06] MEDS: traZODone HCL 50 MG TAB PO SCH (22:01)
[2022-05-06] MEDS: PATIENT'S OWN ORAL CONTRACEPTIVE PO SCH (22:06)
[2022-05-07] MEDS: ARIPiprazole 5 MG TAB PO SCH (09:37)
[2022-05-07] MEDS: PANTOprazole 40 MG TAB PO SCH ×2 (09:40→22:01)
--- NOTE | 2022-05-07 14:37 | Psychiatric Progress Note ---
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 Bipolar by hx, has side effects to mood stabilizer and discontinued antidepressant on own about 2 months ago. Unclear if having true manic episodes vs. acting out sexually, will continue to explore hypomania as suspect may minimize at this time. 05/07/22: minimal improvement, hold titration of Abilify until tomorrow given N (1) Suicide attempt: (2) Bipolar II disorder major depressive with atypical features: Plan 05/07/22: continue Abilify 2.5 mg daily for now, letter for aide and attendance by father completed to support travel. 05/06/22: reviewed labs, d/c Seroquel, agreed to trial of Abilify instead, aware same risks/benefits/alternatives and need for longer term monitoring. 05/05/22: MNPR due to GI illness, also patient has mildly low ANC which could be JIM, can't exclude side effect of Seroquel which will taper to 25 mg tonight. Cannot exclude FAIRBANKS/dizzy as discontinuation syndrome from seroquel but more likely overall illness. fasting labs as previously discussed with repeat sodium, lipase, CBC. Consider medicine consult if persists. Will reswab for covid if febrile to 100.4 (no respiratory symptoms) 05/04/22: The patient was admitted to the [facility] ([facility]) on q15 min checks (behavioral with suicide precautions) for safety. The patient will participate in group, recreational, and milieu therapies and will be offered additional individual and family sessions as clinically appropriate. Risks/benefits/alternatives reviewed re: her current medications. will order fasting labs in am with plan to taper Seroquel in favor of a trial of agent like Abilify as may have more antidepressant effect and be less sedating. Inventory Assets Strengths: senior, culturally accepting of some meds Needs: local therapist and prescriber Suicide Risk Level Suicide Risk Level: High-Moderate (q15 min suicide checks) Risk Factors Assessment : No Do You Have Access To A Gun?: Yes (a small rifle in a locked gun case in living room of apartment) Mental Health Diagnoses: Yes Substance Use Disorders: No Previous Attempt: Yes Previous Psychiatric Hospitalization: No Protective Factors Assessment Employed: No Interval History Identifying Information HALLE RICHARDSON is a 21-year-old F from [place] who currently attends [employer], has a history of SIB, and was admitted on 05/04/22 03:05 on a 201 voluntary commitment for SI with near attempt. Chief Complaint "I can't sleep, I have nightmares, I feel chest hurts in group". Review of Systems Sleep Information Total Hours of Sleep: 6.5 Meal Information Percent Meal Consumed - Breakfast: 0 Percent Meal Consumed - Lunch: 20 Percent Meal Consumed - Dinner: 80 Subjective Subjective Patient was seen & assessed and interval progress reviewed with nursing and social work. Patient has difficulty verbalizing her anxiety, still with passive wish at times. Is trying to imagine how could spend time with her boyfriend for safety after hospital (he is in [place]), needs documentation for father to be able to leave [place] to provide support. Physical Exam Psychiatric Orientation: alert Apperance: appropriately dressed and appropriately groomed Eye Contact: + fair eye contact Motor Behavior: no abnormal motor movements Speech: + abnormal rate/rhythm/volume of speech Affect: + depressed affect Mood: + depressed mood Thought Process: goal directed thought process Thought Content: reality based without delusions Suicidal Thoughts: denies suicidal intent; + reports suicidal thoughts (passive) Homicidal Thoughts: denies homicidal thoughts Hallucinations: no auditory hallucinations and no visual hallucinations Cognition: attention grossly intact and language grossly intact Estimated Intelligence: consistent with education level Insight: + limited insight Judgement: + limited judgement Vital Signs (Past 24 Hours) Last Vital Signs Temp 36.8 C 05/07/22 06:40 Pulse 92 H 05/07/22 11:43 Resp 22 05/07/22 11:43 BP 102/72 05/07/22 11:43 Pulse Ox 99 05/04/22 04:44 O2 Del Method 05/04/22 04:44 Results & Data (U) Current Inpatient Medications Current Inpatient Medications: Current Inpatient Medications Acetaminophen (Acetaminophen 325 Mg Tab) 650 mg PO Q4H PRN PRN Reason: Headache or Minor Fever Stop: 06/03/22 03:04 Last Admin: 05/04/22 23:07 Dose: 650 mg Al Hydrox/Mg Hydrox/Simethicone (Aluminum/Magnesium Susp 30 Ml Udc) 30 ml PO Q4H PRN PRN Reason: GI Upset Stop: 06/03/22 03:04 Aripiprazole (Aripiprazole 5 Mg Tab) 2.5 mg PO QAM ZACH Stop: 06/05/22 13:14 Last Admin: 05/07/22 09:37 Dose: 2.5 mg Bismuth Subsalicylate (Bismuth Subsalicylate Liqd 236 Ml) 15 ml PO PRN PRN PRN Reason: Loose Stool Stop: 06/03/22 03:04 Last Admin: 05/05/22 19:59 Dose: 15 ml Hydroxyzine HCl (Hydroxyzine Hcl 25 Mg Tab) 25 mg PO Q4H PRN PRN Reason: Anxiety Stop: 06/03/22 03:04 Last Admin: 05/04/22 04:16 Dose: 25 mg Magnesium Hydroxide (Magnesium Hydroxide Susp 30 Ml Udc) 30 ml PO DAILY PRN PRN Reason: Constipation Stop: 06/03/22 03:04 Miscellaneous (Patient's Own Oral Contraceptive) 1 each PO HS ZACH Stop: 06/03/22 22:59 Last Admin: 05/06/22 22:06 Dose: 1 each Ondansetron HCl (Ondansetron 4 Mg Od Tab) 4 mg PO Q6H PRN PRN Reason: Nausea Stop: 06/04/22 11:44 Pantoprazole Sodium (Pantoprazole 40 Mg Tab) 40 mg PO BID ZACH Stop: 06/04/22 11:59 Last Admin: 05/07/22 09:40 Dose: 40 mg Sodium Chloride (Sodium Chloride 0.65% Na Soln 45 Ml ([place])) 1 - 2 sprays NA PRN PRN PRN Reason: Nasal Dryness/Congestion Stop: 06/03/22 03:04 Trazodone HCl (Trazodone Hcl 50 Mg Tab) 50 mg PO HS ZACH Stop: 06/04/22 21:59 Last Admin: 05/06/22 22:01 Dose: 50 mg Trazodone HCl (Trazodone Hcl 100 Mg Tab) 100 mg PO HS PRN PRN Reason: Insomnia Stop: 06/03/22 21:59 Mental Health & Subst Abuse Tx Psychiatrist Name of Psychiatrist: Leeann Caruso Psychiatrist's Date of Appointment with Psychiatrist: 05/25/22 Time of Appointment with Psychiatrist: 10:15 AM Psychiatric Appointment Comment: [address], [place] [address] Therapist Name of Therapist: Marie Arizmendi Therapist's Date of Therapist Appointment: 05/12/22 Time of Therapist Appointment: 2:30 PM Therapy Appointment Comment: [address], [address], [place] [address] Post Discharge Appointments Primary Care Physician Name Of Family Doctor: [facility]
[2022-05-07] MEDS ORDERED: traZODone HCL 50 MG TAB PO PRN (14:38)
[2022-05-07] MEDS: PATIENT'S OWN ORAL CONTRACEPTIVE PO SCH (22:00)
[2022-05-07] MEDS: traZODone HCL 100 MG TAB PO SCH (22:01)
[2022-05-08] MEDS: ARIPiprazole 5 MG TAB PO SCH (09:14)
[2022-05-08] MEDS: PANTOprazole 40 MG TAB PO SCH ×2 (09:42→21:16)
--- NOTE | 2022-05-08 13:34 | Psychiatric Progress Note ---
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 Bipolar by hx, has side effects to mood stabilizer and discontinued antidepressant on own about 2 months ago. Unclear if having true manic episodes vs. acting out sexually, will continue to explore hypomania as suspect may minimize at this time. 05/08/22: improving, safety plan finalizing (1) Suicide attempt: (2) 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 05/07/22: continue Abilify 2.5 mg daily for now, letter for aide and attendance by father completed to support travel. 05/06/22: reviewed labs, d/c Seroquel, agreed to trial of Abilify instead, aware same risks/benefits/alternatives and need for longer term monitoring. 05/05/22: MNPR due to GI illness, also patient has mildly low ANC which could be JIM, can't exclude side effect of Seroquel which will taper to 25 mg tonight. Cannot exclude FAIRBANKS/dizzy as discontinuation syndrome from seroquel but more likely overall illness. fasting labs as previously discussed with repeat sodium, lipase, CBC. Consider medicine consult if persists. Will reswab for covid if febrile to 100.4 (no respiratory symptoms) 05/04/22: The patient was admitted to the [facility] ([facility]) on q15 min checks (behavioral with suicide precautions) for safety. The patient will participate in group, recreational, and milieu therapies and will be offered additional individual and family sessions as clinically appropriate. Risks/benefits/alternatives reviewed re: her current medications. will order fasting labs in am with plan to taper Seroquel in favor of a trial of agent like Abilify as may have more antidepressant effect and be less sedating. Inventory Assets Strengths: senior, culturally accepting of some meds Needs: local therapist and prescriber Suicide Risk Level Suicide Risk Level: Moderate (q15 min suicide checks) Risk Factors Assessment : No Do You Have Access To A Gun?: Yes (a small rifle in a locked gun case in living room of apartment) Mental Health Diagnoses: Yes Substance Use Disorders: No Previous Attempt: Yes Previous Psychiatric Hospitalization: No Protective Factors Assessment Employed: No Interval History Identifying Information HALLE RICHARDSON is a 21-year-old F from [place] who currently attends [employer] [facility] [employer], has a history of SIB, and was admitted on 05/04/22 03:05 on a 201 voluntary commitment for SI with near attempt. Chief Complaint "I'm feeling more stable". Review of Systems Sleep Information Total Hours of Sleep: 7.25 Meal Information Percent Meal Consumed - Breakfast: 75 Percent Meal Consumed - Lunch: 20 Percent Meal Consumed - Dinner: 75 Nutrition Comment: pt. had a dew bites but c/o of nausea; fluids provided Subjective Subjective Patient was seen & assessed and interval progress reviewed with treatment team. Patient reports almost total resolution of GI symptoms. Tolerating Abilify. Had a meeting with friend who will remove the gun from the apartment (no ammunition either), and she can stay with patient through her appointments to process withdrawal/initiate outpatient psychiatric care. Patient may then go to stay with boyfriend until father arrives. Physical Exam Psychiatric Orientation: alert and oriented x 3 Apperance: appropriately dressed and appropriately groomed Eye Contact: + fair eye contact Motor Behavior: no abnormal motor movements Speech: + abnormal rate/rhythm/volume of speech Affect: + depressed affect Mood: + depressed mood Thought Process: goal directed thought process Thought Content: reality based without delusions Suicidal Thoughts: denies suicidal thoughts and denies suicidal intent Homicidal Thoughts: denies homicidal thoughts Hallucinations: no auditory hallucinations and no visual hallucinations Cognition: attention grossly intact and language grossly intact Estimated Intelligence: consistent with education level Insight: + limited insight Judgement: + limited judgement Vital Signs (Past 24 Hours) Last Vital Signs Temp 36.6 C 05/08/22 06:00 Pulse 94 H 05/08/22 06:13 Resp 16 05/08/22 06:00 BP 91/60 L 05/08/22 06:13 Pulse Ox 99 05/04/22 04:44 O2 Del Method 05/04/22 04:44 Results & Data (U) Current Inpatient Medications Current Inpatient Medications: Current Inpatient Medications Acetaminophen (Acetaminophen 325 Mg Tab) 650 mg PO Q4H PRN PRN Reason: Headache or Minor Fever Stop: 06/03/22 03:04 Last Admin: 05/04/22 23:07 Dose: 650 mg Al Hydrox/Mg Hydrox/Simethicone (Aluminum/Magnesium Susp 30 Ml Udc) 30 ml PO Q4H PRN PRN Reason: GI Upset Stop: 06/03/22 03:04 Aripiprazole (Aripiprazole 5 Mg Tab) 2.5 mg PO QAM ZACH Stop: 06/05/22 13:14 Last Admin: 05/08/22 09:14 Dose: 2.5 mg Bismuth Subsalicylate (Bismuth Subsalicylate Liqd 236 Ml) 15 ml PO PRN PRN PRN Reason: Loose Stool Stop: 06/03/22 03:04 Last Admin: 05/05/22 19:59 Dose: 15 ml Hydroxyzine HCl (Hydroxyzine Hcl 25 Mg Tab) 25 mg PO Q4H PRN PRN Reason: Anxiety Stop: 06/03/22 03:04 Last Admin: 05/04/22 04:16 Dose: 25 mg Magnesium Hydroxide (Magnesium Hydroxide Susp 30 Ml Udc) 30 ml PO DAILY PRN PRN Reason: Constipation Stop: 06/03/22 03:04 Miscellaneous (Patient's Own Oral Contraceptive) 1 each PO HS ZACH Stop: 06/03/22 22:59 Last Admin: 05/07/22 22:00 Dose: 1 each Ondansetron HCl (Ondansetron 4 Mg Od Tab) 4 mg PO Q6H PRN PRN Reason: Nausea Stop: 06/04/22 11:44 Pantoprazole Sodium (Pantoprazole 40 Mg Tab) 40 mg PO BID ZACH Stop: 06/04/22 11:59 Last Admin: 05/08/22 09:42 Dose: 40 mg Sodium Chloride (Sodium Chloride 0.65% Na Soln 45 Ml ([place])) 1 - 2 sprays NA PRN PRN PRN Reason: Nasal Dryness/Congestion Stop: 06/03/22 03:04 Trazodone HCl (Trazodone Hcl 50 Mg Tab) 50 mg PO HS PRN PRN Reason: Insomnia Stop: 06/03/22 21:59 Trazodone HCl (Trazodone Hcl 100 Mg Tab) 100 mg PO HS ZACH Stop: 06/06/22 21:59 Last Admin: 05/07/22 22:01 Dose: 100 mg Mental Health & Subst Abuse Tx Psychiatrist Name of Psychiatrist: Leeann Caruso Psychiatrist's Date of Appointment with Psychiatrist: 05/25/22 Time of Appointment with Psychiatrist: 10:15 AM Psychiatric Appointment Comment: [address], [place] [address] Therapist Name of Therapist: Marie Arizmendi Therapist's Date of Therapist Appointment: 05/12/22 Time of Therapist Appointment: 2:30 PM Therapy Appointment Comment: [address], [address], [place] [address] Washer Blanket Name of Washer Blanket: GIULIA Arnett Phone Number for Washer Blanket: [phone] Date of Appointment with Washer Blanket: 05/14/22 Time of Appointment with Washer Blanket: 11:00 AM Case Management Appointment Comment: A Zoom link has been sent to your [facility] email. Post Discharge Appointments Primary Care Physician Name Of Family Doctor: [facility] Contact Information Discharge Discharge Address: [address] [place] [address], [place] [address]
[2022-05-08] MEDS: traZODone HCL 100 MG TAB PO SCH (21:16)
[2022-05-08] MEDS: PATIENT'S OWN ORAL CONTRACEPTIVE PO SCH (21:16)
[2022-05-09] MEDS: ARIPiprazole 5 MG TAB PO SCH (09:23)
[2022-05-09] MEDS: PANTOprazole 40 MG TAB PO SCH (09:23)
--- NOTE | 2022-05-09 10:36 | Discharge Summary ---
Date of Service May 09, 2022 History of Present Illness Today Sara reports that she has been dealing with depression since "maybe elementary or emerita high" and has 1 prior suicide attempt by cutting in early teens but did not get any treatment at the time. She has been seeing a psychiatrist in [place] for a few years, mainly varying doses of her current meds and they [place] but hasn't taken Effexor XR for 2-3 months as "don't like getting headaches, or taking meds in general." It should likes she has been only taking half of her prescribed Seroquel and 50 mg of trazodone and sometimes skips as "I have to sleep 12 hrs and then can't get up." Yesterday she had urge to end her life by climbing out her apartment window and her friends had to "talk me away" and brought her to ED for assessment. She has some difficulty relating her current stressors other than return to classes as much of this summer she spent in [place] with her boyfriend. She denies they are currently broken up but it should be seen in ED recently and completed most of course of Flagyl and doxy for BV and to cover for STIs given hx of multiple sexual partners. She admits to having sex with male friends when she really just wants to talk but didn't endorse hypersexuality and seemed to have difficulty knowing what was meant by manic symptom. She has brief periods where she feels like "talking alot" and then goes to her room to isolate. When depressed she feels like she has a harder time going to class and last week experienced panic/anxiety due to number of people in the business building. She has had similar symptoms while driving. She was having alot of N and D last week due to side effects from the antibiotics. She has been sleeping too much, gained 20 lbs this summer despite being active with golf. Physical Exam Vital Signs (Past 24 Hours) Last Vital Signs Temp 36.9 C 05/09/22 06:00 Pulse 95 H 05/09/22 06:25 Resp 18 05/09/22 06:00 BP 94/61 L 05/09/22 06:25 Pulse Ox 99 05/04/22 04:44 O2 Del Method 05/04/22 04:44 See admission H&P and DOD summary. Principal Diagnosis Bipolar disorder type II, current depressive episode Psychiatric Data See daily stay summary. In short, patient was engaged with the social/therapeutic milieu of the unit, safety was maintained and the patient was cooperative with care. Medication changes included initiation of Abilify, discontinuation of Seroquel and increase in trazodone and they tolerated this well. Baseline labs of fasting glucose, fasting lipid profile, and weight were preformed and WNL with exception of slightly elevated triglycerides at 167. Recommend repeat weight in one month. Recommend repeat fasting glucose and fasting lipid profile every 12 weeks and then annually. If symptoms arise recommend checking BP, EKG, prolactin level as clinically indicated or relevant. A support session was held and safety plan was completed prior to discharge. Her gun was removed from her apartment by a friend. She actively and insightfully participated in safety planning and in discussions about ways to seek support and recognizing warning signs and utilizing coping skills. Reviewed importance of seeking emergency care should SI intensify, worsen or should they feel unsafe in the future which they agree to do. On the day of discharge she stated her mood was "good" and remained future-oriented including spending time with friends, meeting her new kitten, exercising more, spending more time outside, seeing her father when he arrives from [place] and engaging in aftercare appointments for psychiatry, therapy and [employer] student care and advocacy. Day of Discharge Assessment Today the patient voices readiness for discharge. They note improvement in mood and anxiety. They deny thoughts of harm to self or others. Thoughts are organized and they are clinically improved from admission. There is no evidence of psychosis. They improved in the hospital with support and medication adjustments. They agree to take medications as prescribed and keep follow-up appointments. At the time of the discharge they are deemed to be stable and appropriate for outpatient level of care. They are not deemed to be at imminent risk of harm to self or others. They are aware of emergency and crisis services. Knows to call 911 or go to nearest emergency care center if in a crisis which cannot be handled as an outpatient. Transition of Care Transition Of Care Record: was reviewed with the patient Advance Directives Advance Directives Information Provided: Yes Mental Health Advance Directive: No Advance Directives on File: No Living Will: No Power of Joint Cleaning Machine Operator: No Advance Directives Reason:: Declines as Mental Health Visit. Suicide Risk Level Suicide Risk Level Comments: Acute risk is low given improvement in mood and denial of SI, lack of access to lethal means, hopefulness. Chronic risk is moderate given periods of impulsivity, prior attempt, emotional reactivity, mood disorder but also with protective factors. Counseled on ways to reduce acute and chronic risk including engaging with outpatient providers, using safety plan if needed, utilizing supports, taking medication, and using coping skills. Modifiable risk factors of SI, anxiety and depression were addressed during hospitalization through development of new coping skills, support meeting, safety planning, and medication adjustments. Risk Factors Assessment : No Do You Have Access To A Gun?: Yes (a small rifle in a locked gun case in living room of apartment) Mental Health Diagnoses: Yes Substance Use Disorders: No Previous Attempt: Yes Previous Psychiatric Hospitalization: No Hopelessness: No Protective Factors Assessment Employed: Yes (time clerk student) Stable Relationships: Yes Supportive Family: Yes Discharge Data Lab Results 05/04/22 05/04/22 05/04/22 00:40 00:40 00:43 WBC 2.12 L RBC 4.93 Hgb 12.9 Hct 37.8 MCV 76.7 L MCH 26.2 MCHC 34.1 RDW Std Deviation 39.3 RDW Coeff of Lizeth 14.6 H Plt Count 183 MPV 9.7 Immature Gran % (Auto) 0.5 Neut % (Auto) 60.8 Lymph % (Auto) 27.4 [place] % (Auto) 10.8 Eos % (Auto) 0.5 Baso % (Auto) 0.0 Neut # (Auto) 1.29 L Lymph # (Auto) 0.58 L [place] # (Auto) 0.23 L Eos # (Auto) 0.01 Baso # (Auto) 0.00 Immature Gran # (Auto) 0.01 Sodium Potassium Chloride Carbon Dioxide Anion Gap BUN Creatinine Est Cr Clr Drug Dosing Est GFR ( Amer) Est GFR (Non-Af Amer) BUN/Creatinine Ratio Glucose Fasting Glucose Calcium Total Bilirubin AST ALT Alkaline Phosphatase Total Protein Albumin Globulin Albumin/Globulin Ratio Triglycerides Cholesterol LDL Cholesterol, Calc VLDL Cholesterol, Calc HDL Cholesterol Cholesterol/HDL Ratio Lipase TSH HCG, Qual Urine Color Yellow Urine Appearance Cloudy A Urine pH 8.0 H Ur Specific [place] 1.013 Urine Protein Negative Urine Glucose (UA) Negative Urine Ketones Trace H Urine Blood Negative Urine Nitrite Negative Urine Bilirubin Negative Urine Urobilinogen Negative Ur Leukocyte Esterase Negative Urine WBC (Auto) 1-5 Urine RBC (Auto) 0-4 U Hyaline Cast (Auto) 0 U Epithel Cells (Auto) >30 H Urine Bacteria (Auto) Negative Urine Yeast Not Reportable Salicylates Urine Opiates Screen Neg Ur Methadone, Qual Neg Acetaminophen Urine Barbiturates Neg Ur Phencyclidine (PCP) Neg U Amphetamin/Meth Scrn Neg MDMA (Ecstasy) Screen Neg U Benzodiazepines Scrn Neg Ur Cocaine Metabolite Neg U Marijuana (THC) Screen Neg Ethyl Alcohol mg/dL SARS-CoV-2, RNA, NAAT 05/04/22 05/04/22 05/04/22 00:43 00:43 00:43 WBC RBC Hgb Hct MCV MCH MCHC RDW Std Deviation RDW Coeff of Lizeth Plt Count MPV Immature Gran % (Auto) Neut % (Auto) Lymph % (Auto) [place] % (Auto) Eos % (Auto) Baso % (Auto) Neut # (Auto) Lymph # (Auto) [place] # (Auto) Eos # (Auto) Baso # (Auto) Immature Gran # (Auto) Sodium 132 L Potassium 3.6 Chloride 102 Carbon Dioxide 21 Anion Gap 9 BUN 11 Creatinine 0.74 Est Cr Clr Drug Dosing 96.3 Est GFR ( Amer) 135.2 Est GFR (Non-Af Amer) 116.6 BUN/Creatinine Ratio 14.9 Glucose 96 Fasting Glucose Calcium 9.5 Total Bilirubin 0.5 AST 68 H ALT 23 Alkaline Phosphatase 55 Total Protein 7.7 Albumin 4.4 Globulin 3.3 Albumin/Globulin Ratio 1.3 Triglycerides Cholesterol LDL Cholesterol, Calc VLDL Cholesterol, Calc HDL Cholesterol Cholesterol/HDL Ratio Lipase TSH 0.832 HCG, Qual Urine Color Urine Appearance Urine pH Ur Specific [place] Urine Protein Urine Glucose (UA) Urine Ketones Urine Blood Urine Nitrite Urine Bilirubin Urine Urobilinogen Ur Leukocyte Esterase Urine WBC (Auto) Urine RBC (Auto) U Hyaline Cast (Auto) U Epithel Cells (Auto) Urine Bacteria (Auto) Urine Yeast Salicylates < 3.0 L Urine Opiates Screen Ur Methadone, Qual Acetaminophen < 3 L Urine Barbiturates Ur Phencyclidine (PCP) U Amphetamin/Meth Scrn MDMA (Ecstasy) Screen U Benzodiazepines Scrn Ur Cocaine Metabolite U Marijuana (THC) Screen Ethyl Alcohol mg/dL SARS-CoV-2, RNA, NAAT 05/04/22 05/04/22 05/04/22 00:43 00:43 01:17 WBC RBC Hgb Hct MCV MCH MCHC RDW Std Deviation RDW Coeff of Lizeth Plt Count MPV Immature Gran % (Auto) Neut % (Auto) Lymph % (Auto) [place] % (Auto) Eos % (Auto) Baso % (Auto) Neut # (Auto) Lymph # (Auto) [place] # (Auto) Eos # (Auto) Baso # (Auto) Immature Gran # (Auto) Sodium Potassium Chloride Carbon Dioxide Anion Gap BUN Creatinine Est Cr Clr Drug Dosing Est GFR ( Amer) Est GFR (Non-Af Amer) BUN/Creatinine Ratio Glucose Fasting Glucose Calcium Total Bilirubin AST ALT Alkaline Phosphatase Total Protein Albumin Globulin Albumin/Globulin Ratio Triglycerides Cholesterol LDL Cholesterol, Calc VLDL Cholesterol, Calc HDL Cholesterol Cholesterol/HDL Ratio Lipase TSH HCG, Qual Negative Urine Color Urine Appearance Urine pH Ur Specific [place] Urine Protein Urine Glucose (UA) Urine Ketones Urine Blood Urine Nitrite Urine Bilirubin Urine Urobilinogen Ur Leukocyte Esterase Urine WBC (Auto) Urine RBC (Auto) U Hyaline Cast (Auto) U Epithel Cells (Auto) Urine Bacteria (Auto) Urine Yeast Salicylates Urine Opiates Screen Ur Methadone, Qual Acetaminophen Urine Barbiturates Ur Phencyclidine (PCP) U Amphetamin/Meth Scrn MDMA (Ecstasy) Screen U Benzodiazepines Scrn Ur Cocaine Metabolite U Marijuana (THC) Screen Ethyl Alcohol mg/dL < 10.0 SARS-CoV-2, RNA, NAAT NEGATIVE 05/06/22 05/06/22 08:10 08:10 WBC 2.30 L RBC 4.87 Hgb 12.8 Hct 37.4 MCV 76.8 L MCH 26.3 MCHC 34.2 RDW Std Deviation 41.2 RDW Coeff of Lizeth 15.2 H Plt Count 143 MPV 10.7 Immature Gran % (Auto) 0.4 Neut % (Auto) 49.2 Lymph % (Auto) 40.9 [place] % (Auto) 8.7 Eos % (Auto) 0.4 Baso % (Auto) 0.4 Neut # (Auto) 1.13 L Lymph # (Auto) 0.94 L [place] # (Auto) 0.20 L Eos # (Auto) 0.01 Baso # (Auto) 0.01 Immature Gran # (Auto) 0.01 Sodium 134 L Potassium Chloride Carbon Dioxide Anion Gap BUN Creatinine Est Cr Clr Drug Dosing Est GFR ( Amer) Est GFR (Non-Af Amer) BUN/Creatinine Ratio Glucose Fasting Glucose 91 Calcium Total Bilirubin AST ALT Alkaline Phosphatase Total Protein Albumin Globulin Albumin/Globulin Ratio Triglycerides 167 H Cholesterol 120 LDL Cholesterol, Calc 50 VLDL Cholesterol, Calc 33 H HDL Cholesterol 37 Cholesterol/HDL Ratio 3.2 Lipase 37 TSH HCG, Qual Urine Color Urine Appearance Urine pH Ur Specific [place] Urine Protein Urine Glucose (UA) Urine Ketones Urine Blood Urine Nitrite Urine Bilirubin Urine Urobilinogen Ur Leukocyte Esterase Urine WBC (Auto) Urine RBC (Auto) U Hyaline Cast (Auto) U Epithel Cells (Auto) Urine Bacteria (Auto) Urine Yeast Salicylates Urine Opiates Screen Ur Methadone, Qual Acetaminophen Urine Barbiturates Ur Phencyclidine (PCP) U Amphetamin/Meth Scrn MDMA (Ecstasy) Screen U Benzodiazepines Scrn Ur Cocaine Metabolite U Marijuana (THC) Screen Ethyl Alcohol mg/dL SARS-CoV-2, RNA, NAAT Hospital Course (1) Suicide attempt: (2) 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 05/07/22: continue Abilify 2.5 mg daily for now, letter for aide and attendance by father completed to support travel. 05/06/22: reviewed labs, d/c Seroquel, agreed to trial of Abilify instead, aware same risks/benefits/alternatives and need for longer term monitoring. 05/05/22: MNPR due to GI illness, also patient has mildly low ANC which could be JIM, can't exclude side effect of Seroquel which will taper to 25 mg tonight. Cannot exclude [place]/dizzy as discontinuation syndrome from seroquel but more likely overall illness. fasting labs as previously discussed with repeat sodium, lipase, CBC. Consider medicine consult if persists. Will reswab for covid if febrile to 100.4 (no respiratory symptoms) 05/04/22: The patient [facility] on q15 min checks (behavioral with suicide precautions) for safety. The patient will participate in group, recreational, and milieu therapies and will be offered additional individual and family sessions as clinically appropriate. Risks/benefits/alternatives reviewed re: her current medications. will order fasting labs in am with plan to taper Seroquel in favor of a trial of agent like Abilify as may have more antidepressant effect and be less sedating. Mental Health & Subst Abuse Tx Psychiatrist Name of Psychiatrist: Leeann Caruso Psychiatrist's Date of Appointment with Psychiatrist: 05/25/22 Time of Appointment with Psychiatrist: 10:15 AM Psychiatric Appointment Comment: [address] , [place] [address] Psychiatrist Release of Information: Obtained, Reviewed and Signed Therapist Name of Therapist: Marie Arizmendi Therapist's Date of Therapist Appointment: 05/12/22 Time of Therapist Appointment: 2:30 PM Therapy Appointment Comment: [address], [address], [place] [address] Therapist Release of Information: Obtained, Reviewed and Signed Ironing Machine Operator Name of Ironing Machine Operator: GIULIA Arnett Phone Number for Ironing Machine Operator: [phone] Date of Appointment with Ironing Machine Operator: 05/14/22 Time of Appointment with Ironing Machine Operator: 11:00 AM Case Management Appointment Comment: A Zoom link has been sent to your [facility] email. Ironing Machine Operator Release of Information: Obtained, Reviewed and Signed Post Discharge Appointments Primary Care Physician Name Of Family Doctor: [facility] Release of Information: Obtained, Reviewed and Signed Other #1: Name of Aftercare Appointment: TACOS Mckinney Phone Number of Aftercare Appointment: [phone] Date of Aftercare Appointment: 05/13/22 Time of Aftercare Appointment: 10:30 AM Aftercare Appointment Comment: Faye will call you to check in about withdrawal. Release of Information Aftercare Appointment: Obtained, Reviewed and Signed Contact Information Discharge Discharge [address]: [address] [place] [address], [place] [address] Discharge Plan Discharge Items Patient Disposition: Home - Self-Care Reason For Visit: UNSPECIFIED MOOD DISORDER, 201 Discharge Diagnosis: Bipolar disorder type II, current depressive episode Activity: Resume your previous activity Non-emergency contact: Primary Care Provider, Psychiatrist and Therapist Call non-emergency contact if: you have any medication questions and your symptoms worsen Follow-up/Referrals: [facility] [Primary Care Provider] - Diet: Regular Addtl Attending Provider Instructions: SPECIAL CARE INSTRUCTIONS: 1. Follow through with your scheduled aftercare appointments. If unable to keep an appointment, please call to reschedule. 2. Take your medication only as prescribed. Medication should not be changed or stopped without the approval of your doctor. In the event of worsening symptoms or concerns about side effects, contact your doctor immediately. 3. Utilize new healthy coping skills, anger management skills, and stress management skills learned during your hospitalization. Journal feelings and process them with a support person. Identify stressors or situations that may result in relapse, deterioration or inappropriate behaviors and develop a plan to deal with those issues. 4. If your coping skills are ineffective and you are in crisis, contact your outpatient providers for direction. If unable to reach your providers, please call the [facility] CRISIS LINE AT , go to the [facility] walk-in center at [address], [address], [place], or go to the closest Emergency Room. 5. Avoid alcohol and un-prescribed drugs. 6. You have been provided with the Mental Health Advance Directives Pamphlet for your review. 7. Your condition is stable for discharge to outpatient level of care, but recovery is an ongoing process. Ifthoughts to harm yourself or others return, follow the safety plan developed during your stay. Planning for a safe return home includes securing weapons. Our treatment team recommends weaponsbe removed from the home until your outpatient provider reassesses your progress. In rare cases where the items themselvescannot be removed, guns and ammunitionshould be secured separatelyand keys stored by a reliable personoutside of the home. If you were admitted on an involuntary commitment, the police or other legal authorities may be involved in this process. AFTERCARE APPOINTMENTS: * Please call your insurance company prior to your scheduled appointment to confirm your aftercare providers are covered. Take your insurance information to your appointments. WHO TO CALL AND WHEN: Medical Emergencies: For questions or emergencies related to your hospital stay, please contact the Inpatient Behavioral Health Unit at [phone]. A furniture removalist's assistant is on-call 29/03 for the Behavioral Health Unit for emergencies At any time you feel your situation is an emergency, you may also call 911 immediately. Pending Studies at Discharge: No Stand-Alone Forms: [facility] Medications and DC Order Prescriptions: New trazodone 100 mg Tablet 100 mg PO HS Qty: 1 0RF pantoprazole 40 mg Tablet,Delayed Release (Dr/Ec) 40 mg PO BID 30 Days Qty: 60 0RF aripiprazole [Abilify] 5 mg Tablet 2.5 mg PO QAM 30 Days Qty: 15 0RF Continued norethindrone-e.estradiol-iron [Sol 24 Fe] 1 mg-20 mcg (24)/75 mg (4) tablet 1 tab PO DAILY Discontinued trazodone 50 mg Tablet 50 mg PO HS metronidazole 500 mg tablet 500 mg PO DAILY Rx Instructions: ordered 04/24/22 take for 7 days quetiapine 100 mg Tablet 200 mg PO HS doxycycline monohydrate 100 mg capsule 100 mg PO BID Rx Instructions: ordered 04/27/22 take for 7 days venlafaxine 225 mg Tablet Extended Release 24hr 225 mg PO QAM Discharge Orders: Discharge Order (Routine); Ordered 05/09/22 Ordered By: Della Chinchilla Admission Data Admit Date/Time: 05/04/22 03:05 Attending Provider: Lurdes Alvarez Admit Provider: Della Chinchilla Primary Care Provider: [facility] Other Interventions: Discharge Summary Assessment (RN) Last Done: 05/09/22 11:04 PSY Interdisciplinary Discharge Planning Last Done: 05/09/22 11:04 Coding Level of Care Code 87451 D/C day mgmt > 30 min Diagnoses Suicide attempt T14.91XA Bipolar II disorder major depressive with atypical features F31.81 Time Spent (min) 35
[2022-05-09] MEDS ORDERED: DESTROY THIS MEDICATION ONE (10:45)
== END 2022-05-09 11:25 | disposition home or self-care (01) | DRG 914 ==
LOC: ED 23:59 → 3S 05-04 03:05 → SUATTDRO 05-04 03:05 → 3S 05-04 03:57